=== PATIENT | female | born 1960 | race Caucasian/White ===

== ENCOUNTER 2018-05-17 10:06 | Inpatient (IN) | payer OTHER ==
[~2018-05-17] VITALS: Ht 152.4 cm; Wt 69.0 kg
[2018-05-17] MEDS ORDERED: ONDANSETRON 2MG/ML, 2ML ONE (11:06)
[2018-05-17 11:22] LABS: BASOPHILS # (AUTO) 0.13 x10^3/uL (0-0.1); BASOPHILS % (AUTO) 1 % (0-1); EOSINOPHILS # (AUTO) 0.08 x10^3/uL (0-0.4); EOSINOPHILS % (AUTO) 1 % (1-7); LYMPHOCYTES # (AUTO) 2.78 x10^3/uL (1-3.4); LYMPHOCYTES % (AUTO) 19 % (22-44); MD NO; MEAN CORPUSCULAR HEMOGLOBIN 32.1 pg (27.0-34.8); MEAN CORPUSCULAR VOLUME 97.3 fL (80-100); MEAN PLATELET VOLUME 8.8 fL (7.4-10.4); MONOCYTES # (AUTO) 0.91 x10^3/uL (0.2-0.8); MONOCYTES % (AUTO) 6 % (2-9); NEUTROPHILS # (AUTO) 10.61 x10^3/uL (1.8-6.8); NEUTROPHILS % (AUTO) 73 % (42-75); PLATELET COUNT 301 x10^3/uL (130-400); RED BLOOD COUNT 4.55 x10^6/uL (3.82-5.3); RED CELL DISTRIBUTION WIDTH 14.4 % (9.6-15.2)
--- NOTE | 2018-05-17 11:22 | NUR ---
PT RESTING COMFORTABLY AT THIS TIME. MORPHINE AND ZOFRAN ORDERED. PER PT REQUEST MORPHINE WITHELD AT THIS TIME UNTIL PAIN WAS TO GET UNBEARABLE. PAIN AT 4/10 AT THIS TIME WHICH PER PT IS ACCEPTABLE. PT MEDICATED WITH ZOFRAN PER ORDER.
[2018-05-17 11:24] LABS: MICROSCOPIC NOT IND
[2018-05-17 11:26] LABS: CULTURE INDICATED? NO
[2018-05-17] MEDS ORDERED: ONDANSETRON 2MG/ML, 2ML IVPush ONE (11:30)
[2018-05-17 11:32] LABS: ALANINE AMINOTRANSFERASE 34 U/L (12-78); ANION GAP 7 mmol/L (5-15); BILIRUBIN, DIRECT 0.2 mg/dL (0.1-0.2); CALCIUM 9.3 mg/dL (8.5-10.1); CHLORIDE 108 mmol/L (98-107)
[2018-05-17 11:37] LABS: ALKALINE PHOSPHATASE 55 U/L (45-117); BILIRUBIN,INDIRECT 0.5 mg/dL (0.0-2.0); BILIRUBIN,TOTAL 0.7 mg/dL (0.2-1.0); CREATININE 0.74 mg/dL (0.55-1.02); TOTAL PROTEIN 8.3 g/dL (6.4-8.2)
--- NOTE | 2018-05-17 11:49 | NUR ---
PT TO CT NOW
[2018-05-17] MEDS ORDERED: AMPICILLIN/SULBACTAM 3 GM in SODIUM CHLORIDE 0.9% 100 ML IV ONE (12:30)
[2018-05-17] MEDS ORDERED: METRONIDAZOLE PMX 500MG/100ML 100 ML IV ONE (12:30)
[2018-05-17] MEDS ORDERED: POLYETHYLENE GLYCOL 17 GM PACKET PO PRN (14:00)
[2018-05-17] MEDS ORDERED: ONDANSETRON 2MG/ML, 2ML IVPush PRN (14:00)
[2018-05-17] MEDS ORDERED: LABETALOL 5MG/ML, 20ML IVPush PRN (14:00)
[2018-05-17] MEDS ORDERED: ONDANSETRON ODT 4 MG PO PRN (14:00)
[2018-05-17] MEDS: PIPERACILLIN/TAZO/PMX 3.375GM 50 ML IV SCH ×2 (15:41→21:45)
[2018-05-17] MEDS: D5%-0.45% NACL 1,000 ML IV SCH (15:41)
[2018-05-17 19:48] VITALS: BP 105/67
[2018-05-18 02:20] VITALS: BP 92/66
[2018-05-18] MEDS: D5%-0.45% NACL 1,000 ML IV SCH (03:40)
[2018-05-18] MEDS: PIPERACILLIN/TAZO/PMX 3.375GM 50 ML IV SCH ×2 (03:40→10:49)
[2018-05-18 05:48] LABS: CHLORIDE 109 mmol/L (98-107)
[2018-05-18 06:07] LABS: ALANINE AMINOTRANSFERASE 31 U/L (12-78); ALBUMIN 3.4 g/dL (3.4-5.0); ALKALINE PHOSPHATASE 58 U/L (45-117); ANION GAP 6 mmol/L (5-15); BILIRUBIN,TOTAL 0.8 mg/dL (0.2-1.0); CALCIUM 8.8 mg/dL (8.5-10.1); CREATININE 0.76 mg/dL (0.55-1.02); TOTAL PROTEIN 7.3 g/dL (6.4-8.2)
[2018-05-18 06:18] LABS: BASOPHILS # (AUTO) 0.03 x10^3/uL (0-0.1); BASOPHILS % (AUTO) 0 % (0-1); EOSINOPHILS # (AUTO) 0.22 x10^3/uL (0-0.4); EOSINOPHILS % (AUTO) 2 % (1-7); LYMPHOCYTES # (AUTO) 2.85 x10^3/uL (1-3.4); LYMPHOCYTES % (AUTO) 30 % (22-44); MD NO; MEAN CORPUSCULAR HEMOGLOBIN 32.4 pg (27.0-34.8); MEAN CORPUSCULAR HGB CONC 32.9 g/dL (32.4-35.8); MEAN CORPUSCULAR VOLUME 98.4 fL (80-100); MEAN PLATELET VOLUME 8.3 fL (7.4-10.4); MONOCYTES # (AUTO) 0.73 x10^3/uL (0.2-0.8); MONOCYTES % (AUTO) 8 % (2-9); NEUTROPHILS # (AUTO) 5.62 x10^3/uL (1.8-6.8); NEUTROPHILS % (AUTO) 59 % (42-75); PLATELET COUNT 277 x10^3/uL (130-400); RED BLOOD COUNT 4.17 x10^6/uL (3.82-5.3)
[2018-05-18 07:42] VITALS: BP 100/60
[2018-05-18] MEDS ORDERED: SENNA/DOCUSATE TABLET PO SCH (09:00)
[2018-05-18] MEDS ORDERED: ACETAMINOPHEN 325 MG TABLET PO PRN (12:00)
[2018-05-18 13:59] VITALS: BP 97/63
[2018-05-18] MEDS ORDERED: METR500T PO (14:48)
[2018-05-18] MEDS ORDERED: CIPR500T87 PO (14:48)
[2018-05-18] MEDS ORDERED: ONDA4TAB7 PO (14:48)
== END 2018-05-18 15:40 | disposition home or self-care (01) | DRG 872 ==
LOC: ED 12:07 → EDIP 13:27 → 3NW 14:05 → DCLOUNGE 05-18 15:29
PROVIDERS: ADMIT Internal Medicine; ATTEND Internal Medicine
DX: A41.9 Sepsis, unspecified organism (principal); K57.32 Diverticulitis of large intestine without perforation or abscess without bleeding; Z82.49 Family history of ischemic heart disease and other diseases of the circulatory system; Z83.3 Family history of diabetes mellitus; Z87.442 Personal history of urinary calculi
CPT/HCPCS: 36415; 74176; 80048; 80053; 80076; 81003; 83605; 83735; 84100; 84703; 85025; 87040; 96374; 96375; 99291; G0378; J0295; J2405; J2543

== ENCOUNTER 2019-02-08 09:57 | Emergency (ER) | payer OTHER ==
[~2019-02-08] VITALS: Ht 152.4 cm; Wt 75.0 kg
[~2019-02-08 09:57] MED LIST: CIPR500T87 PO; METR500T PO; ONDA4TAB7 PO
[2019-02-08 10:00] VITALS: BP 160/78
[2019-02-08] MEDS ORDERED: KETOROLAC 60 MG/2 ML ONE (10:22)
[2019-02-08] MEDS ORDERED: KETOROLAC 30 MG/1 ML IM ONE (10:30)
--- NOTE | 2019-02-08 10:49 | NUR ---
TASK RN: PT RESTING ON GURNEY. DUTTON
== END 2019-02-08 11:36 | disposition home or self-care (01) ==
LOC: ED 11:21
DX: M75.31 Calcific tendinitis of right shoulder (principal)
CPT/HCPCS: 73030; 96372; 99283; J1885